=== PATIENT | female | born 1935 | race Caucasian/White ===

== ENCOUNTER 2017-12-10 12:11 | Observation (INO) | payer MEDICARE ==
--- NOTE | 2017-12-10 13:50 | ED ---
General Adult HPI - General Chief complaint: Recheck/Abnormal Lab/Rx Stated complaint: lt leg pain behind knee Time Seen by Provider: 12/10/17 13:36 Source: patient, family, RN notes reviewed Mode of arrival: wheelchair Limitations: physical limitation - History of Present Illness Initial comments: This 82-year-old female who states she had the onset 2 days ago of difficulty moving her left lower extremity for she tries to walk she also had some pain behind her left knee. She states she woke up this morning with the same difficulty in movement of her right lower extremity. She has a false though she almost fell denies any headache dizziness blurry vision palpitations or other symptoms at this time. She has no prior history of strokes. She does states she occasionally has pain going down her right buttock into her leg but is not experiencing this at this time. No other modifying factors no known neurological disorders. Patient does have a history of breast cancer with surgery this past July. - Related Data Home Medications Medication Instructions Recorded Confirmed Anastrozole [Arimidex] 1 mg PO DAILY 12/10/17 12/10/17 Atorvastatin Calcium [Lipitor] 20 mg PO DAILY 12/10/17 12/10/17 Lisinopril [Zestril] 10 mg PO DAILY 12/10/17 12/10/17 Omeprazole 20 mg PO DAILY PRN 12/10/17 12/10/17 Triamterene-Hctz 37.5-25Mg 1 tab PO MOWEFR 12/10/17 12/10/17 [Maxzide 37.5-25] Allergies Allergy/AdvReac Type Severity Reaction Status Date / Time No Known Allergies Allergy Verified 12/10/17 14:01 Review of Systems ROS Statement: Those systems with pertinent positive or pertinent negative responses have been documented in the HPI. ROS Other: All systems not noted in ROS Statement are negative. Past Medical History Past Medical History: GERD/Reflux, Hyperlipidemia, Hypertension Additional Past Medical History / Comment(s): breast ca History of Any Multi-Drug Resistant Organisms: None Reported Past Surgical History: Adenoidectomy, Cholecystectomy, Tonsillectomy Additional Past Surgical History / Comment(s): rt masectomy july 2017 Past Psychological History: No Psychological Hx Reported Smoking Status: Never smoker Past Alcohol Use History: None Reported Past Drug Use History: None Reported General Exam - General Exam Comments Initial Comments: This is a well-developed well-nourished awake alert oriented 3 female Limitations: physical limitation General appearance: alert, in no apparent distress Head exam: Present: atraumatic, normocephalic, normal inspection Eye exam: Present: normal appearance, PERRL, EOMI. Absent: scleral icterus, conjunctival injection, periorbital swelling ENT exam: Present: normal exam, mucous membranes moist Neck exam: Present: normal inspection. Absent: tenderness, meningismus, lymphadenopathy Respiratory exam: Present: normal lung sounds bilaterally. Absent: respiratory distress, wheezes, rales, rhonchi, stridor Cardiovascular Exam: Present: regular rate, normal rhythm, normal heart sounds. Absent: systolic murmur, diastolic murmur, rubs, gallop, clicks GI/Abdominal exam: Present: soft, normal bowel sounds. Absent: distended, tenderness, guarding, rebound, rigid Extremities exam: Present: normal inspection, tenderness (Mild posterior knee tenderness palpation no masses), normal capillary refill. Absent: full ROM, pedal edema, joint swelling, calf tenderness Back exam: Present: other (Mild evidence of kyphosis) Neurological exam: Present: alert, oriented X3, CN II-XII intact, motor sensory deficit (The patient had difficulty raising both lower extremities to gravity. Push pull the feet are equal bilaterally no sensory or vascular deficits.) Psychiatric exam: Present: normal affect, normal mood Skin exam: Present: warm, dry, intact, normal color. Absent: rash Course Vital Signs 12/10/17 12:58 Temperature 97.7 F Pulse Rate 56 L Respiratory 18 Rate Blood Pressure 134/67 O2 Sat by Pulse 99 Oximetry Medical Decision Making - Medical Decision Making The patient was able ambulate but with a lot of difficulty. She has trouble with her right leg starts moving it forward and controlling it. Patient will be admitted I discuss case with Dr. Perez - Lab Data Result diagrams: 12/10/17 14:38 12/10/17 14:38 Lab Results 12/10/17 12/10/17 12/10/17 Range/Units 14:38 14:38 14:38 WBC 7.8 (3.8-10.6) k/uL RBC 4.52 (3.80-5.40) m/uL Hgb 14.2 (11.4-16.0) gm/dL Hct 42.6 (34.0-46.0) % MCV 94.3 (80.0-100.0) fL MCH 31.4 (25.0-35.0) pg MCHC 33.3 (31.0-37.0) g/dL RDW 12.9 (11.5-15.5) % Plt Count 293 (150-450) k/uL Neutrophils % 68 % Lymphocytes % 23 % Monocytes % 6 % Eosinophils % 2 % Basophils % 0 % Neutrophils # 5.4 (1.3-7.7) k/uL Lymphocytes # 1.8 (1.0-4.8) k/uL Monocytes # 0.4 (0-1.0) k/uL Eosinophils # 0.2 (0-0.7) k/uL Basophils # 0.0 (0-0.2) k/uL Sodium 141 (137-145) mmol/L Potassium 3.8 (3.5-5.1) mmol/L Chloride 108 H (98-107) mmol/L Carbon Dioxide 26 (22-30) mmol/L Anion Gap 7 mmol/L BUN 21 H (7-17) mg/dL Creatinine 0.69 (0.52-1.04) mg/dL Est GFR (CKD-EPI)AfAm >90 (>60 ml/min/1.73 sqM) Est GFR (CKD-EPI)NonAf 81 (>60 ml/min/1.73 sqM) Glucose 86 (74-99) mg/dL Calcium 9.9 (8.4-10.2) mg/dL Magnesium 2.0 (1.6-2.3) mg/dL Total Bilirubin 0.6 (0.2-1.3) mg/dL AST 28 (14-36) U/L ALT 35 (9-52) U/L Alkaline Phosphatase 97 (38-126) U/L Total Creatine Kinase 52 (30-135) U/L CK-MB (CK-2) 1.1 (0.0-2.4) ng/mL CK-MB (CK-2) Rel Index 2.1 Total Protein 6.8 (6.3-8.2) g/dL Albumin 4.2 (3.5-5.0) g/dL TSH 2.550 (0.465-4.680) mIU/L Urine Color Urine Appearance (Clear) Urine pH (5.0-8.0) Ur Specific Abie (1.001-1.035) Urine Protein (Negative) Urine Glucose (UA) (Negative) Urine Ketones (Negative) Urine Blood (Negative) Urine Nitrite (Negative) Urine Bilirubin (Negative) Urine Urobilinogen (<2.0) mg/dL Ur Leukocyte Esterase (Negative) 12/10/17 Range/Units 17:05 WBC (3.8-10.6) k/uL RBC (3.80-5.40) m/uL Hgb (11.4-16.0) gm/dL Hct (34.0-46.0) % MCV (80.0-100.0) fL MCH (25.0-35.0) pg MCHC (31.0-37.0) g/dL RDW (11.5-15.5) % Plt Count (150-450) k/uL Neutrophils % % Lymphocytes % % Monocytes % % Eosinophils % % Basophils % % Neutrophils # (1.3-7.7) k/uL Lymphocytes # (1.0-4.8) k/uL Monocytes # (0-1.0) k/uL Eosinophils # (0-0.7) k/uL Basophils # (0-0.2) k/uL Sodium (137-145) mmol/L Potassium (3.5-5.1) mmol/L Chloride (98-107) mmol/L Carbon Dioxide (22-30) mmol/L Anion Gap mmol/L BUN (7-17) mg/dL Creatinine (0.52-1.04) mg/dL Est GFR (CKD-EPI)AfAm (>60 ml/min/1.73 sqM) Est GFR (CKD-EPI)NonAf (>60 ml/min/1.73 sqM) Glucose (74-99) mg/dL Calcium (8.4-10.2) mg/dL Magnesium (1.6-2.3) mg/dL Total Bilirubin (0.2-1.3) mg/dL AST (14-36) U/L ALT (9-52) U/L Alkaline Phosphatase (38-126) U/L Total Creatine Kinase (30-135) U/L CK-MB (CK-2) (0.0-2.4) ng/mL CK-MB (CK-2) Rel Index Total Protein (6.3-8.2) g/dL Albumin (3.5-5.0) g/dL TSH (0.465-4.680) mIU/L Urine Color Yellow Urine Appearance Clear (Clear) Urine pH 5.5 (5.0-8.0) Ur Specific Abie 1.024 (1.001-1.035) Urine Protein Trace H (Negative) Urine Glucose (UA) Negative (Negative) Urine Ketones 1+ H (Negative) Urine Blood Negative (Negative) Urine Nitrite Negative (Negative) Urine Bilirubin Negative (Negative) Urine Urobilinogen <2.0 (<2.0) mg/dL Ur Leukocyte Esterase Negative (Negative) - Radiology Data Radiology results: report reviewed (Did review the imaging and report no acute findings.), image reviewed Disposition Clinical Impression: Right leg weakness, Failure to thrive Disposition: ADMITTED IP TO THIS [facility] Condition: Stable Referrals: Nonstaff,Physician [Primary Care Provider] - 1-2 days
[2017-12-10 14:48] LABS: Basophils % (A) 0 %; Eosinophils # (A) 0.2 k/uL (0-0.7); Eosinophils % (A) 2 %; HCT 42.6 % (34.0-46.0); HGB 14.2 gm/dL (11.4-16.0); Lymphocytes # (A) 1.8 k/uL (1.0-4.8); Lymphocytes % (A) 23 %; MCH 31.4 pg (25.0-35.0); MCHC 33.3 g/dL (31.0-37.0); MCV 94.3 fL (80.0-100.0); Mean Platelet Volume 6.8; Monocytes # (A) 0.4 k/uL (0-1.0); Monocytes % (A) 6 %; Neutrophils # (A) 5.4 k/uL (1.3-7.7); Neutrophils % (A) 68 %; Platelet Count 293 k/uL (150-450); RBC 4.52 m/uL (3.80-5.40); RDW 12.9 % (11.5-15.5); WBC 7.8 k/uL (3.8-10.6)
[2017-12-10 14:55] LABS: ALT 35 U/L (9-52); AST 28 U/L (14-36); Albumin 4.2 g/dL (3.5-5.0); Alkaline Phosphatase 97 U/L (38-126); Anion Gap 7 mmol/L; Blood Urea Nitrogen 21 mg/dL (7-17); Calcium 9.9 mg/dL (8.4-10.2); Carbon Dioxide 26 mmol/L (22-30); Chloride 108 mmol/L (98-107); Glucose 86 mg/dL (74-99); Potassium 3.8 mmol/L (3.5-5.1); Sodium 141 mmol/L (137-145); Total Bilirubin 0.6 mg/dL (0.2-1.3); Total Protein 6.8 g/dL (6.3-8.2)
[2017-12-10 15:17] LABS: Creatine Kinase MB 1.1 ng/mL (0.0-2.4)
--- NOTE | 2017-12-10 15:43 | US ---
EXAMINATION TYPE: US venous doppler duplex LE LT DATE OF EXAM: 12/10/2017 3:23 PM COMPARISON: NONE CLINICAL HISTORY: Pain. SIDE PERFORMED: Left TECHNIQUE: The lower extremity deep venous system is examined utilizing real time linear array sonog odette with graded compression, doppler sonography and color-flow sonography. VESSELS IMAGED: External Iliac Vein (EIV) Common Femoral Vein Deep Femoral Vein Greater Saphenous Vein * Femoral Vein Popliteal Vein Small Saphenous Vein * Proximal Calf Veins (* superficial vessels) Left Leg: Negative for DVT Lee's cyst 5.5 x 1.8 x 3.9cm Patient had difficulty adducting leg. IMPRESSION: 1. Left lower extremity negative for deep venous thrombosis. 2. Popliteal cyst left popliteal fossa.
--- NOTE | 2017-12-10 16:00 | CT ---
EXAMINATION TYPE: CT brain wo con DATE OF EXAM: 12/10/2017 COMPARISON: None INDICATION: Leg weakness. DLP: 819.1 mGycm, Automated exposure control for dose reduction was used. CONTRAST: None CT of the brain is performed utilizing 3 mm thick sections through the posterior fossa and 3 mm thick sections through the remaining calvarium. Study is performed within 24 hours of arrival to the hosp [facility]. No abnormal hyperdensity is present to suggest an acute intracranial hemorrhage. No mass lesion is evident. No acute infarcts are evident. Mild periventricular white matter hypodensity is present, likely on th e basis of white matter ischemic changes. Ventricles and sulci are appropriate for the patient age. Paranasal sinuses and mastoid air cells within the [id number] are clear. IMPRESSIONS: 1. Mild chronic appearing white matter ischemic changes.
--- NOTE | 2017-12-10 16:20 | XR ---
EXAMINATION TYPE: XR chest 2V DATE OF EXAM: 12/10/2017 COMPARISON: None INDICATION: Cough right hip pain TECHNIQUE: Frontal and lateral views of the chest are obtained. FINDINGS: The heart size is normal. The pulmonary vasculature is normal. The lungs are clear. IMPRESSION: 1. No acute pulmonary process.
--- NOTE | 2017-12-10 16:20 | XR ---
EXAMINATION TYPE: XR lumbosacral spine min 4V DATE OF EXAM: 12/10/2017 COMPARISON: None HISTORY: Right hip pain left posterior leg pain TECHNIQUE: Five-view lumbar spine FINDINGS: There 5 lumbar-type vertebral bodies. The pedicles are intact. Scoliosis is present. Degene rative disc changes are present with loss of disc height. Spondylosis is present. IMPRESSION: 1. Advanced degenerative disc changes with loss of disc height, spondylosis, and scoliosis to the teressa mbar spine.
[2017-12-10 17:14] LABS: Appearance,Urine Clear (Clear); Bilirubin,Urine Negative (Negative); Blood,Urine Negative (Negative); Color,Urine Yellow; Glucose,Urine (UA) Negative (Negative); Ketones,Urine 1+ (Negative); Leukocyte Esterase,Urine Negative (Negative); Nitrite,Urine Negative (Negative); PH, Urine 5.5 (5.0-8.0); Protein,Urine Trace (Negative); Specific Gravity,Urine 1.024 (1.001-1.035); Urobilinogen,Urine <2.0 mg/dL (<2.0)
[2017-12-10] MEDS ORDERED: NALOXONE 0.4 MG/ML 1 ML VIAL IV PRN (17:31)
[2017-12-10] MEDS ORDERED: PANTOPRAZOLE 40 MG TABLET PO PRN (17:36)
[2017-12-10 20:13] VITALS: BMI 28.0
[2017-12-10] MEDS: TRIAMTERENE-HCTZ 37.5-25MG 1 EACH TAB PO SCH (20:15)
[2017-12-10] MEDS ORDERED: ACETAMINOPHEN TAB 500 MG TAB PO PRN (23:27)
[2017-12-10] MEDS ORDERED: ALPRAZolam 0.25 MG TAB PO PRN (23:27)
--- NOTE | 2017-12-11 07:57 | HP ---
HISTORY AND PHYSICAL DATE OF SERVICE: 12/10/2017 CHIEF COMPLAINTS: Right leg weakness. HISTORY OF PRESENT ILLNESS: This 82-year-old woman with a past medical history of multiple medical problems including GERD, hypertension, hypertension, breast cancer, being followed by a physician elsewhere, was complaining of right leg pain about the last 2 weeks. The patient also had some difficulty in left leg also. This morning the patient woke up and the patient had right leg difficulties, which is partially improving according to her and the patient came to [facility] and admitted for further evaluation and treatment. There is no history of fever, rigors. No headache, loss conscious, seizures. The patient had multiple evaluation including CT of the brain which showed mild chronic appearing ischemic changes and venous Doppler was negative for DVT and lumbar spine x-ray was done which showed advanced DJD. Neurology evaluation in progress. There is no history of fever, rigors. No headache, loss of consciousness, seizures. PAST MEDICAL HISTORY: History of GERD, hypertension, hyperlipidemia, history of breast cancer, adenoidectomy, cholecystectomy. MEDICATIONS: Prior to admission include home medications are: 1. Triamterene hydrochlorothiazide 37.8/25 mg p.o. Sunday, Sunday, Sunday. 2. Omeprazole 20 mg daily p.r.n. 3. Zestril 10 mg. 4. Lipitor 20 mg daily. 5. Arimidex 1 mg. ALLERGIES: None. FAMILY HISTORY: History of CVA, TIA in the family, angioplasty and stents. SOCIAL HISTORY: No history of smoking. No history of alcohol intake. REVIEW OF SYSTEMS: ENT: No diminished hearing or vision. CARDIOVASCULAR: No angina. RESPIRATORY: No cough or hemoptysis. GI: No nausea. : No dysuria. NERVOUS SYSTEM: As mentioned earlier. ALLERGY/IMMUNOLOGY: No history of asthma or hay fever. MUSCULOSKELETAL: As mentioned earlier. HEMATOLOGY: No history of anemia. ENDOCRINE: No history of diabetes or hypothyroid. CONSTITUTIONAL: As mentioned earlier. DERMATOLOGY: Negative. RHEUMATOLOGY: Negative. PSYCHIATRY: As mentioned earlier. PHYSICAL EXAMINATION: Alert and oriented x3. Pulse is 60, blood pressure 159/80, respiration 16, temperature 97.1, pulse ox 90% on room air. HEENT: Conjunctivae normal. Oral mucosa moist. NECK: No jugular venous distention. No carotid bruit. No lymph node enlargement. CARDIOVASCULAR: S1, S2. RESPIRATORY: Breath sounds diminished in the bases. No rhonchi. No crackles. ABDOMEN: Soft, nontender. No mass palpable. LEGS: Minimal weakness of the right leg present. No sensory abnormality. Otherwise the left leg appears to be normal. NERVOUS SYSTEM: Higher functions as mentioned. Moves all 4 limbs except the right limb as mentioned early. Otherwise no sensory abnormality. SKIN: No ulcer, rash, bleeding. LYMPHATIC No lymphadenopathy in the neck, axillae, groin. JOINTS: No active deforming arthropathy. LABS: CBC within normal limits. CMP within normal. UA noted. ASSESSMENT: 1. Weakness of the right leg possible acute transient ischemic attack or acute stroke. 2. Gastroesophageal reflux disease. 3. Hypertension. 4. Hyperlipidemia. 5. 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 6. History of breast cancer. 7. History of cholecystectomy. RECOMMENDATIONS AND DISCUSSION: This 82-year-old woman who presented with multiple complex medical issues, we will monitor the patient closely. Continue the current management and symptomatic treatment. Otherwise, neurology evaluation. Antiplatelet agents. I would also recommend Lipitor. Continue the home medications. Guarded prognosis because of multiple complex medical issues. Further recommendations to follow. I also recommend the patient follow up with primary physician closely. MMODL / IJN: [id number] /
[2017-12-11] MEDS: LISINOPRIL 10 MG TAB PO SCH (11:59)
[2017-12-11] MEDS: ASPIRIN 81 MG PO SCH (11:59)
[2017-12-11] MEDS: ATORVASTATIN 20 MG TAB PO SCH (11:59)
[2017-12-11] MEDS: HEPARIN SODIUM,PORCINE 5,000 UNIT/ML 1 ML VIAL SQ SCH ×2 (11:59→20:29)
[2017-12-11] MEDS: ANASTROZOLE 1 MG TAB PO SCH (12:00)
[2017-12-11] MEDS: SODIUM CHLORIDE 0.9% 1,000 ML IV SCH (12:00)
--- NOTE | 2017-12-11 16:11 | P.CNNES ---
History of Present Illness Consult date: 12/11/17 Requesting physician: Mendoza Barraza Reason for Consult: Right lower extremity weakness Chief complaint: Right lower extremity weakness History of Present Illness: Neurology is consult in an 82-year-old female with a past history of multiple medical comorbidities that include GERD, hypertension, breast cancer. Patient is complaining of right lower extremity weakness for approximately the last 14 days. Patient did have symptoms in the left leg also which have since resolved. Upon presentation at the ED, patient reported waking up having right leg difficulties which began improving according the patient. However patient still presented for symptoms. Patient described that she woke up with complete loss of strength in her right lower extremity on rising from bed and attempting to ambulate. For several days previous, patient did have intermittent type shooting pains from her low back into the right lower extremity. Patient does have a known history of right-sided sciatica. She also reports having a significant history of lumbar DDD of greater than 10 years. While at home, patient was unclear if the symptoms were more consistent with sciatica or possible stroke and came to the hospital. Currently, patient still reports some right lower extremity weakness and also reports low back pain on the right that radiates down the right lower extremity intermittently along the lateral border/pant stripe that stops just above the top of the foot with and without ambulation. X-ray performed on arrival to Hospital for the lumbar spine noted advanced degenerative disc changes with loss of disc height, spondylosis and scoliosis of the lumbar spine. Pedicles are intact. Degenerative changes are present. On contact, patient was alert and oriented 3, sitting at the bedside in no acute distress. Family was present in the room. Review of Systems Systems not noted in HPI or negative Past Medical History Past Medical History: GERD/Reflux, Hyperlipidemia, Hypertension Additional Past Medical History / Comment(s): breast ca in July 2017 History of Any Multi-Drug Resistant Organisms: None Reported Past Surgical History: Adenoidectomy, Cholecystectomy, Tonsillectomy Additional Past Surgical History / Comment(s): rt masectomy july 2017 Past Psychological History: No Psychological Hx Reported Smoking Status: Never smoker Past Alcohol Use History: None Reported Past Drug Use History: None Reported - Past Family History Mother Family Medical History: CVA/TIA Additional Family Medical History / Comment(s): angiodisplacia of intestine, englarged heart. Father Additional Family Medical History / Comment(s): bladder cancer with metastasis Medications and Allergies Home Medications Medication Instructions Recorded Confirmed Type Anastrozole [Arimidex] 1 mg PO DAILY 12/10/17 12/10/17 History Atorvastatin Calcium [Lipitor] 20 mg PO DAILY 12/10/17 12/10/17 History Lisinopril [Zestril] 10 mg PO DAILY 12/10/17 12/10/17 History Omeprazole 20 mg PO DAILY PRN 12/10/17 12/10/17 History Triamterene-Hctz 37.5-25Mg 1 tab PO MOWEFR 12/10/17 12/10/17 History [Maxzide 37.5-25] Allergies Allergy/AdvReac Type Severity Reaction Status Date / Time No Known Allergies Allergy Verified 12/10/17 14:01 Physical Examination - Vital Signs Vital Signs: Vital Signs Temp Pulse Pulse Resp BP BP Pulse Ox 12/11/17 08:00 98 F 59 L 16 119/57 94 L 12/11/17 04:00 56 L 18 113/55 98 12/11/17 00:00 47 L 16 110/53 96 12/10/17 20:00 60 12/10/17 19:48 97.1 F L 60 16 159/80 98 12/10/17 19:21 54 L 18 126/75 97 12/10/17 18:30 58 L 18 141/65 96 12/10/17 17:56 97.1 F L 70 16 159/80 98 12/10/17 17:30 52 L 18 133/60 98 Intake and Output 12/11/17 12/11/17 12/11/17 06:59 14:59 22:59 Intake Total 150 Output Total 560 Balance -410 Intake: Oral 150 Output: Urine 560 Other: # Voids 1 2 # Bowel Movements 1 Weight 56.9 kg Gen. appearance: Alert, in no apparent distress Head: Atraumatic normocephalic, normal inspection Eyes: Well appearance, PERRL, EOMI. absent: Scleral icterus, conjunctival injection, nystagmus, periorbital swelling. Ear nose and throat: Normal exam, mucous membranes moist Neck: Normal inspection. Absent tenderness, lymphadenopathy Respiratory: No increased work of breathing. Cardiovascular: Regular rate, normal rhythm, normal heart sounds. Absent systolic murmur, diastolic murmur, rubs, gallops, clicks GIabdominal: Normal bowel sounds, non distended, no tenderness, no guarding, no rebound, no rigidity. Extremities: All range of motion, normal capillary refill, no tenderness, pedal edema, joint swelling, calf tenderness Neurological: Alert and oriented 3, cranial nerves II through XII intact, right lower extremity unilateral lateralizing weakness 4-/5, left lower extremity 4+ out of 5, bilateral upper extremities 4+ out of 5, no seizure activity noted on physical exam, no pronator drift and no nystagmus. Musculoskeletal/spine: Positive dorsiflexion, negative plantar flexion, negative pain with extension below the knee, negative SI exam. Psychological: Mood and affect appropriate setting Results - Laboratory Findings CBC and BMP: 12/10/17 14:38 12/10/17 14:38 Abnormal Lab Findings: Abnormal Labs 12/10/17 12/10/17 14:38 17:05 Chloride 108 H BUN 21 H Urine Protein Trace H Urine Ketones 1+ H Assessment and Plan (1) TIA (transient ischemic attack) Narrative/Plan: Although the patient CT of the brain was negative for acute process, there are some components the patient's physical exam findings are suggestive for possible TIA/CVA. As a result, we will continue further neurological workup to rule out TIA/CVA at this time. Concerning symptoms include the right lower extremity weakness that is ongoing. Further diagnostic workup to include: MRI of the brain without contrastif patient's breast markers or MRI safe. Staff nurse advised records can be obtained from [facility]. EEG Carotid Doppler studyultrasound-guided Serum homocystine level Lipid panel Treatment: Continue Lipitor 20 mg daily at bedtime as ordered and implemented Continue 81 mg aspirin as implemented on arrival Continue neuro checks per order Further treatment recommendations once results of imaging and testing is received and reviewed Current Visit: Yes Status: Acute Code(s): G45.9 - TRANSIENT CEREBRAL ISCHEMIC ATTACK, UNSPECIFIED SNOMED Code(s): 417159468 (2) Right leg weakness Narrative/Plan: She does have physical exam findings consistent with both lumbar degenerative disc disease as well as possible TIA/CVA. Given the patient's x-ray findings which note lumbar DDD, further diagnostic workup is warranted to rule out concurrent lumbar etiology to account for patient's current symptoms and presentation. Diagnostic workup to include: MRI lumbar spine without contrastpatient has breast markers due to breast CA history. Verify MRI safe with [facility] Physical therapy consult recommended X-ray lumbar spine notes lumbar DDD, scoliosis, spondylosis Treatment: Further treatment options will be discussed once results of imaging is received and reviewed Current Visit: Yes Status: Acute Code(s): R29.898 - OTH SYMPTOMS AND SIGNS INVOLVING THE MUSCULOSKELETAL SYSTEM SNOMED Code(s): 090345636 (3) Lumbar degenerative disc disease Current Visit: Yes Status: Acute Code(s): M51.36 - OTHER INTERVERTEBRAL DISC DEGENERATION, LUMBAR REGION SNOMED Code(s): 83275390 (4) Scoliosis Narrative/Plan: As previously noted above. Current Visit: Yes Status: Acute Code(s): M41.9 - SCOLIOSIS, UNSPECIFIED SNOMED Code(s): 703026291 Plan: At this time, neurology continues to conduct further diagnostic workup as noted above. STATUS: Neurology will continue to follow and provide updates as needed or warranted. Feel free to contact our office with any questions. I discussed the patients history, physical exam, diagnostic testing, lab work and imaging with Dr Lara prior to implementing the plan above. He agrees with the plan as implemented prior to implementation.
--- NOTE | 2017-12-11 17:02 | PN ---
PROGRESS NOTE DATE OF SERVICE: 12/11/2017 This 82-year-old woman who was admitted with right leg weakness also had left- sided weakness. The patient is being closely monitored. Lumbar spine x-ray showed DJD. The patient also had markers in the breast area for breast cancer. Neurology is following the patient closely. Past medical history reviewed. REVIEW OF SYSTEMS: CARDIOVASCULAR SYSTEM: No angina, palpitations. RESPIRATORY SYSTEM: No cough, hemoptysis. GI: As mentioned earlier. : No dysuria or retention. NERVOUS SYSTEM: As mentioned earlier. CURRENT MEDICATIONS: Reviewed. They include: 1. Tylenol 500 mg q.6 p.r.n. 2. Xanax 0.25 t.i.d. 3. Arimidex 1 mg p.o. daily. 4. Aspirin 81 mg daily. 5. Lipitor 20 mg daily. 6. Heparin 5000 units subcutaneously b.i.d. 7. Zestril 10 mg daily. 8. Melatonin 3 mg at bedtime. 9. Narcan 0.2 mg b.i.d. 10.Protonix 40 mg daily. 11.Maxzide PHYSICAL EXAMINATION: Patient is alert, oriented x3. Pulse 59, blood pressure 119/56, respiration 16, temperature 98 degrees, pulse ox 94% on room air. HEENT: Conjunctivae normal. Oral mucosa moist. NECK: No jugular venous distention. No carotid bruit. No lymph node enlargement. CARDIOVASCULAR SYSTEM: S1, S2 muffled. RESPIRATORY SYSTEM: Breath sounds diminished at the bases. Scattered rhonchi and crackles. ABDOMEN: Soft, non-tender. No mass palpable. LEGS: No edema. No swelling. NERVOUS SYSTEM: Higher functions as mentioned earlier. Moves all 4 limbs. Mild weakness in the right leg, much improved at this time. Lab investigations are awaited at this time. Carotid Doppler and EEG and other evaluations are pending at this time. ASSESSMENT: 1. Weakness of the right leg, possible acute transient ischemic attack or acute stroke. 2. Gastroesophageal reflux disease. 3. Weakness of the left leg. 4. 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 5. Hypertension. 6. Hyperlipidemia. 7. History of breast cancer. 8. History of cholecystectomy. RECOMMENDATIONS AND DISCUSSION: In this 82-year-old woman who presented with multiple complex medical issues, we will monitor the patient closely, continue the current medications, continue with symptomatic treatment. Will continue with antiplatelet agents and Lipitor at this time. Continue to monitor. Continue PT/OT evaluation. Neuro checks. Full neurovascular evaluation. I had a detailed discussion with Neurology at this time. The weakness also could be due to a central lesion, most likely acute stroke, or also could be related to lumbar spinal disease as well. So we would recommend MRI of the lumbosacral spine area as well as MRI of the brain. Continue to monitor. The overall prognosis is guarded because of multiple complex medical issues. We will also complete the neurovascular workup. Also discussed with the family, who understands and agrees. Further recommendations to follow. MMODL / IJN: [id number] / NESHA
--- NOTE | 2017-12-11 18:26 | EEG ---
ELECTROENCEPHALOGRAM REPORT DATE OF SERVICE: 12/11/2017 REASON FOR TESTING: Possible stroke. DESCRIPTION OF THE PROCEDURE: This EEG was performed using a 21-channel digital electroencephalograph, following international 10-20 system. DESCRIPTION OF THE RECORDING: From the beginning of the tracing, and with the patient's eyes closed, the background rhythm was mostly consisting of 10 Hz alpha frequency in the posterior occipital leads. No obvious asymmetry is seen. Photic stimulation was performed with a good driving response seen. No pathological waves were elicited. Hyperventilation was not performed. The patient remains awake throughout the tracing. No epileptiform discharges were seen. Her EKG lead showed a regular rate and rhythm. INTERPRETATION: This awake EEG can be considered within normal limits. There was no asymmetry seen. No epileptiform discharges were noticed. The absence of epileptiform discharges does not rule out the diagnosis of epilepsy; therefore clinical correlation is recommended. HEATHER / NANCY: [id number] /
[2017-12-11] MEDS: MELATONIN 3 MG TABLET PO SCH (20:29)
--- NOTE | 2017-12-11 22:12 | US ---
EXAMINATION TYPE: US carotid duplex BILAT DATE OF EXAM: 12/11/2017 COMPARISON: NONE CLINICAL HISTORY: TIA/CVA. Difficulty walking EXAM MEASUREMENTS: RIGHT: Peak Systolic Velocity (PSV) cm/sec ----- Right CCA: 54.5 ----- Right ICA: 78.1 ----- Right ECA: 49.4 ICA/CCA ratio: 1.4 RIGHT: End Diastole cm/sec ----- Right CCA: 13.2 ----- Right ICA: 23.8 ----- Right ECA: 8.0 LEFT: Peak Systolic Velocity (PSV) cm/sec ----- Left CCA: 68.0 ----- Left ICA: 74.5 ----- Left ECA: 62.6 ICA/CCA ratio: 1.1 LEFT: End Diastole cm/sec ----- Left CCA: 14.1 ----- Left ICA: 22.5 ----- Left ECA: 5.1 VERTEBRALS (direction of flow): Right Vertebral: Antegrade Left Vertebral: Antegrade Rhythm: Normal Bilateral intimal thickening, minimal plaque bilateral bulb, no elevated velocities, no significant s tenosis. Grayscale, color Doppler, spectral Doppler imaging performed of the carotid arteries. Waveform analys is does not show significant stenosis of the proximal internal carotid arteries. IMPRESSION: No hemodynamic significant stenosis of the proximal internal carotid arteries bilaterall y by Doppler criteria, an indirect measurement of carotid stenosis
--- NOTE | 2017-12-11 22:24 | MR ---
MR brain and lumbar spine without contrast HISTORY: Cerebral vascular accident, radiculopathy Multiplanar multisequence imaging obtained through the brain and lumbar spine Correlation to CT brain 12/10/2017, lumbosacral spine 12/10/2017 FINDINGS: Brain MRI: There is cortical atrophy. No restricted diffusion. No hemorrhage or hydrocephalus. Corpus callosum, pituitary, cervical medullary junction, cerebellopontine angles are normal. Confluent and scattered periventricular and deep white matter hyperintensities are present on inversion recovery an d T2-weighted sequences. There are normal vascular flow voids. Orbits show symmetric appearance. Muco nii disease present in the left frontal sinus. IMPRESSION: Age-related atrophy and chronic small vessel ischemia Lumbar spine MRI: There is multilevel spondylosis. Loss of disc height and signal present at the inte rvertebral levels with associated vacuum phenomenon. Minimal anterolisthesis grade 1 L4-5, retrolisth esis grade 1 L5-S1, retrolisthesis grade 1 L3-4. Dextroscoliosis centered at the midthoracic spine. T he conus is at L1 shows an unremarkable appearance. Suspect artifact present seen on axial image 8 of the T1 data set showing hyperintensity within the central canal. L5-S1: There is a right posterior paracentral hard disc extension causing anterolateral mass effect o n the thecal sac, likely mass effect on the proximal S1 nerve root on the right greater than left. Ci rcumferential extension of endplate disc complex results in foraminal encroachment bilaterally. No si gnificant central stenosis. There is facet arthropathy L4-5: Facet arthropathy with hypertrophy ligamentum flavum associated with the listhesis and circumfe rential broad-based disc bulge results in a trefoil appearance of the thecal sac, moderate central ca nal stenosis, lateral extension of endplate disc complex results in foraminal encroachment greater on the right. L3-4: Facet arthropathy with hypertrophy of the ligamentum flavum encroaches on the lateral recesses. Circumferential extension endplate disc complex encroaches greater on the left neural foramen, there is anterior mass effect on the thecal sac, moderate central canal stenosis. L2-3: Facet arthropathy with hypertrophy ligamentum flavum causes posterior lateral mass effect on th e thecal sac, encroachment on the lateral recesses, lateral extension endplate disc complex associate d with scoliosis results in left-sided foraminal encroachment. L1-2: Broad-based posterior disc bulge is present, small central posterior disc herniation causes mil d anterior mass effect on the thecal sac. There is facet arthropathy causing encroachment on the late ral recesses. No significant central stenosis or foraminal encroachment. Probable parapelvic cysts associated with the left kidney. IMPRESSION: Degenerative disc disease, facet arthropathy, multilevel foraminal encroachment and spina l stenosis. Hard disc causing mass effect on the thecal sac at L5-S1, correlate for right S1 radiculo pollo. Additional findings above.
[2017-12-12 06:14] LABS: Basophils % (A) 1 %; Eosinophils # (A) 0.2 k/uL (0-0.7); Eosinophils % (A) 3 %; Lymphocytes # (A) 2.1 k/uL (1.0-4.8); Lymphocytes % (A) 35 %; MCH 31.1 pg (25.0-35.0); MCHC 32.6 g/dL (31.0-37.0); MCV 95.6 fL (80.0-100.0); Mean Platelet Volume 6.7; Monocytes # (A) 0.3 k/uL (0-1.0); Monocytes % (A) 6 %; Neutrophils # (A) 3.1 k/uL (1.3-7.7); Neutrophils % (A) 54 %; Platelet Count 262 k/uL (150-450); RBC 4.19 m/uL (3.80-5.40); RDW 12.9 % (11.5-15.5); WBC 5.9 k/uL (3.8-10.6)
[2017-12-12 06:43] LABS: Anion Gap 6 mmol/L; Blood Urea Nitrogen 25 mg/dL (7-17); Calcium 9.6 mg/dL (8.4-10.2); Carbon Dioxide 23 mmol/L (22-30); Chloride 110 mmol/L (98-107); Cholesterol 164 mg/dL (<200); Glucose 83 mg/dL (74-99); HDL Cholesterol 68 mg/dL (40-60); LDL Cholesterol,Calculated 80 mg/dL (0-99); Potassium 4.2 mmol/L (3.5-5.1); Sodium 139 mmol/L (137-145); Triglycerides 80 mg/dL (<150)
[2017-12-12] MEDS: SODIUM CHLORIDE 0.9% 1,000 ML IV SCH ×2 (07:42→19:42)
[2017-12-12] MEDS: ASPIRIN 81 MG PO SCH (07:43)
[2017-12-12] MEDS: ATORVASTATIN 20 MG TAB PO SCH (07:43)
[2017-12-12] MEDS: ANASTROZOLE 1 MG TAB PO SCH (07:43)
[2017-12-12] MEDS: HEPARIN SODIUM,PORCINE 5,000 UNIT/ML 1 ML VIAL SQ SCH ×2 (07:43→19:42)
[2017-12-12] MEDS: LISINOPRIL 10 MG TAB PO SCH (07:44)
--- NOTE | 2017-12-12 12:06 | ECHOF ---
Referral Reason:Stroke MEASUREMENTS -------- HEIGHT: 147.3 cm WEIGHT: 56.7 kg BP: RVIDd: 2.1 cm (< 3.3) IVSd: 1.0 cm (0.6 - 1.1) LVIDd: 3.7 cm (3.9 - 5.3) LVPWd: 1.1 cm (0.6 - 1.1) IVSs: 1.7 cm LVIDs: 1.5 cm LVPWs: 1.5 cm Ao Diam: 2.5 cm (2.0 - 3.7) AV Cusp: 1.8 cm (1.5 - 2.6) LA Diam: 3.4 cm (2.7 - 3.8) MV EXCURSION: 14.273 mm (> 18.000) MV EF SLOPE: 67 mm/s (70 - 150) EPSS: 0.5 cm MV E Jossue: 0.67 m/s MV DecT: 357 ms MV A Jossue: 0.86 m/s MV E/A Ratio: 0.78 AR PHT: 345 ms RAP: 5.00 mmHg RVSP: 24.13 mmHg FINDINGS -------- Sinus rhythm. This was a technically adequate study. The left ventricular size is normal. There is moderate concentric left ventricular hypertrophy. O verall left ventricular systolic function is normal with, an EF between 55 - 60 %. The right ventricle is normal in size and function. The left atrium is normal in size. The right atrial size is normal. Aortic valve is trileaflet and is mildly thickened. The mitral valve leaflets are mildly thickened. Moderate mitral regurgitation is present. Mild tricuspid regurgitation present. There is no evidence of pulmonary hypertension. The right v entricular systolic pressure, as measured by Doppler, is 24.13mmHg. The pulmonic valve was not well visualized. There is no pulmonic regurgitation present. The aortic root size is normal. Normal inferior vena cava with normal inspiratory collapse consistent with estimated right atrial pre ssure of 5 mmHg. There is no pericardial effusion. CONCLUSIONS -------- 1. Sinus rhythm. 2. This was a technically adequate study. 3. The left ventricular size is normal. 4. There is moderate concentric left ventricular hypertrophy. 5. Overall left ventricular systolic function is normal with, an EF between 55 - 60 %. 6. The left atrium is normal in size. 7. Aortic valve is trileaflet and is mildly thickened. 8. The mitral valve leaflets are mildly thickened. 9. Moderate mitral regurgitation is present. 10. Mild tricuspid regurgitation present. 11. There is no evidence of pulmonary hypertension. 12. The pulmonic valve was not well visualized. 13. There is no pulmonic regurgitation present. 14. The aortic root size is normal. 15. Normal inferior vena cava with normal inspiratory collapse consistent with estimated right atrial pressure of 5 mmHg. 16. There is no pericardial effusion. OPTOMETRIC AIDE: Noy Edge RDCS
--- NOTE | 2017-12-12 15:35 | P.CNOR ---
History of Present Illness - [facility] Consult date: 12/12/17 Consult reason: other (Right lower extremity weakness) History of present illness: Patient's very pleasant 82-year-old woman who was admitted to the hospital in regards to weakness at her right lower extremity. She says that the weakness started last Sunday when she is trying to take her dogs out and was able to stand up and walk around because she was unable to move her right leg appropriately. She denies any new pain. She denies any new trauma. She denies any facial changes or speech changes. She denies any weakness in her upper extremities. She denies any chest pain or shortness breath. She denies any trauma or new injury. She says when she tries to stand up she is unable to walk her right lower extremity. She does have history of back pain on and off. She also has some history of some radicular type symptoms at her right lower extremity in the past at her calf thigh and buttocks on the right. She denies any changes in her left leg. She hasn't changed her upper extremities. Review of Systems As stated per HPI. She has been worked up regards to possible stroke. She'll been worked up in regards to her lumbar spine. She's not having severe pain. She is not requiring any pain medications. Past Medical History Past Medical History: GERD/Reflux, Hyperlipidemia, Hypertension Additional Past Medical History / Comment(s): breast ca in July 2017 History of Any Multi-Drug Resistant Organisms: None Reported Past Surgical History: Adenoidectomy, Cholecystectomy, Tonsillectomy Additional Past Surgical History / Comment(s): rt masectomy july 2017 Past Psychological History: No Psychological Hx Reported Smoking Status: Never smoker Past Alcohol Use History: None Reported Past Drug Use History: None Reported - Past Family History Mother Family Medical History: CVA/TIA Additional Family Medical History / Comment(s): angiodisplacia of intestine, englarged heart. Father Additional Family Medical History / Comment(s): bladder cancer with metastasis Medications and Allergies Home Medications Medication Instructions Recorded Confirmed Type Anastrozole [Arimidex] 1 mg PO DAILY 12/10/17 12/10/17 History Atorvastatin Calcium [Lipitor] 20 mg PO DAILY 12/10/17 12/10/17 History Lisinopril [Zestril] 10 mg PO DAILY 12/10/17 12/10/17 History Omeprazole 20 mg PO DAILY PRN 12/10/17 12/10/17 History Triamterene-Hctz 37.5-25Mg 1 tab PO MOWEFR 12/10/17 12/10/17 History [Maxzide 37.5-25] Allergies Allergy/AdvReac Type Severity Reaction Status Date / Time No Known Allergies Allergy Verified 12/10/17 14:01 Physical Examination Osteopathic Statement: *. No significant issues noted on an osteopathic structural exam other than those noted in the History and Physical/Consult. - L Spine: dermatomal strength & reflexes bilateral Strength: hip flexion: 2/5 (At her low back she has a bit of increased hair description at the midline. There is no specific dimpling or patches. At her lower extremities she has able to lift her leg up off the bed and apparently bilateral lower extremity is. She is able to flex her knees and lift her knee up and flex her hip with 4+ out of 5 strength bilaterally. She has 5 out of 5 strength the dorsal to plantar flexion and EHL bilaterally. She is 5 out of 5 strength in knee extension. When she is in a standing position however her hip flexion is significantly weak. She is unable to lift her knee up off to flex her hip. She still has ability to stand on her toes and heels bilateral lower extremity is. She is able to flex her knee and actually her hamstrings. She is not actively activating her hip flexors in a standing position. She is not having any pain with palpation around her hip or leg. She is not having pain in her lower back. She denies any pain was constant sneezes.) Results - Labs Labs: Abnormal Lab Results - Last 24 Hours (Table) 12/12/17 12/12/17 Range/Units 05:23 05:23 Chloride 110 H (98-107) mmol/L BUN 25 H (7-17) mg/dL HDL Cholesterol 68 H (40-60) mg/dL Homocysteine 15.79 H (4.00-14.00) umol/L H & H 12/10/17 12/12/17 Range/Units 14:38 05:23 Hgb 14.2 13.0 (11.4-16.0) gm/dL Hct 42.6 40.0 (34.0-46.0) % Result Diagrams: 12/12/17 05:23 12/12/17 05:23 - Diagnostic results Lumbar MRI with/without contrast: report reviewed, image reviewed (At her lumbar spine she has a number significant changes with severe disc degeneration and degenerative scoliosis. She has degenerative disc disease at L3 4 L4 5 L5- S1. She spondylolisthesis. She spinal stenosis severely at L4 5 with disc herniation at L5-S1. 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 She is not having significant pain but has weakness with hip flexion when she is standing position. She feels her symptoms have improved somewhat and she is able to mobilize adequately with a walker. She is able to bear weight on her lower extremity without any pain or problems. She has been workup for possible stroke with neurology and she does not seem to be having an acute stroke at this point. She does have significant changes at her lumbar spine which could be a cause of her lower extremity symptoms, though she is not having significant pain. She does have severe stenosis with spondylolisthesis L4 5 and significant degeneration with disc herniation at L5-S1 and some stenosis L3 4. She could be a candidate for interventional pain management or even for surgical intervention on her lumbar spine if her symptoms were to persist or worsen. Currently she is comfortable with her mobility and getting around with a walker and feels and she feels it would be okay for her to be at home. I think it is okay for her to be discharged from an orthopedic stype spine standpoint close follow-up next 1-2 weeks for recheck evaluation in the office. She is also continuing her workup and follow up with neurology who is considering interventional pain management with her and I think that would be appropriate. I'll plan to see her back in approximately 1-2 weeks for recheck evaluation.
--- NOTE | 2017-12-12 16:30 | P.PN ---
Subjective Progress Note Date: 12/12/17 Principal diagnosis: right lower extremity weakness Neurology is following on an 82-year-old female for right lower extremity weakness. patient began having right lower extremity weakness approximately 14 days. As previously noted patient does have complex medical history including GERD, hypertension and breast cancer. Patient did have noted lumbar DDD with x- ray while inpatient. Patient was sent for MRI lumbar spine which noted multilevel spondylosis, lumbar DDD, possible nerve root contact the S1 nerve root right greater than left with bilateral foraminal encroachment. Patient's MRI of the brain was negative for acute process. Patient has no new or changed underlying neurological symptoms in the last 24 hours. Patient's lipid panel notes elevated HDL. Other laboratory blood work including serum homocystine level showed slight elevation of serum homocystine. Patient is currently on 81 mg aspirin. Orthopedics has been up to see the patient today on consult, see orthopedic recommendations. On contact, patient was alert and oriented 3, sitting at the bedside in no acute distress. Objective - Vital Signs Vital signs: Vital Signs Temp 98.1 F 12/12/17 07:52 Pulse 69 12/12/17 11:55 Resp 16 12/12/17 11:55 BP 134/63 12/12/17 11:55 Pulse Ox 97 12/12/17 11:55 Intake & Output 12/11/17 12/12/17 12/12/17 18:59 06:59 18:59 Intake Total 150 480 Output Total 1120 Balance -970 480 Weight 56.9 kg Intake: Oral 150 480 Output: Urine 1120 Other: # Voids 2 1 2 # Bowel Movements 1 - Exam General appearance: Alert & oriented x3, no apparent distress. Head: Atraumatic, normocephalic, normal inspection Eyes: Well appearance, PERRLA, EOMI. Absent scleral icterus, conjunctival injection, nystagmus, periorbital swelling. Ear, nose and throat: Normal exam, mucous membranes moist Neck: Normal inspection, absent tenderness, lymphadenopathy. Respiratory: No increased work of breathing Cardiovascular: Regular rate, rhythm GI/abdominal: No guarding Extremities: Full range of motion, normal capillary refill, no tenderness, pedal edema joint swelling, calf tenderness. mild to moderate right L5, mild positive dorsiflexion of foot. Neurological: cranial nerves II through XII intact no lateralizing weakness no seizure activity noted on physical exam no pronator drift and no nystagmus. Left lower extremity: 4+/5 Right lower extremity: 4-/5 Left upper extremity: 4/5 Right upper extremity:4/5 Sensation: Left lower extremity: normal Right lower extremity: normal Left upper extremity: normal Right upper extremity:normal Psychological: Mood and Affect appropriate for setting - Labs CBC & Chem 7: 12/12/17 05:23 12/12/17 05:23 Labs: Abnormal Lab Results - Last 24 Hours (Table) 12/12/17 12/12/17 Range/Units 05:23 05:23 Chloride 110 H (98-107) mmol/L BUN 25 H (7-17) mg/dL HDL Cholesterol 68 H (40-60) mg/dL Homocysteine 15.79 H (4.00-14.00) umol/L Assessment and Plan (1) TIA (transient ischemic attack) Narrative/Plan: At this time, it does NOT appear that the patient experienced a CVA MRI brain was negative for acute process Carotid Doppler study was unremarkable Serum homocystine level slightly elevated, prescribed Folbic 1200 mg qday Lipid panel noted elevated HDL, no medication change related to anti- hyperlipidemic's Treatment: Continue Lipitor 20 mg daily at bedtime as ordered and implemented for long- term risk reduction Continue 81 mg aspirin as implemented for long-term risk reduction Current Visit: Yes Status: Acute Code(s): G45.9 - TRANSIENT CEREBRAL ISCHEMIC ATTACK, UNSPECIFIED SNOMED Code(s): 956817997 (2) Right leg weakness Narrative/Plan: Diagnostic workup to include: MRI lumbar spine with noted changes as stated in HPI X-ray lumbar spine notes lumbar DDD, scoliosis, spondylosis Recommend: NCS/EMG bilateral lower extremity for any further underlying radiculopathy or neuropathy in the outpatient setting Treatment: Continue physical therapy for rehabilitative efforts. Current Visit: Yes Status: Acute Code(s): R29.898 - OTH SYMPTOMS AND SIGNS INVOLVING THE MUSCULOSKELETAL SYSTEM SNOMED Code(s): 931368017 (3) Lumbar degenerative disc disease Narrative/Plan: as stated in #2 above Current Visit: Yes Status: Acute Code(s): M51.36 - OTHER INTERVERTEBRAL DISC DEGENERATION, LUMBAR REGION SNOMED Code(s): 15339058 (4) Scoliosis Narrative/Plan: As previously noted above. Current Visit: Yes Status: Acute Code(s): M41.9 - SCOLIOSIS, UNSPECIFIED SNOMED Code(s): 081296039 Plan: At this time, neurology we will clear the patient for discharge from a neurological standpoint. Patient to follow-up in our office within 14 days I discussed the patients history, physical exam, diagnostic testing, lab work and imaging with Dr Lara prior to implementing the plan above. He agrees with the plan as implemented prior to implementation.
[2017-12-12] MEDS: TRIAMTERENE-HCTZ 37.5-25MG 1 EACH TAB PO SCH (17:06)
[2017-12-12] MEDS: MELATONIN 3 MG TABLET PO SCH (19:42)
[2017-12-13 04:32] VITALS: RESP 16; TEMP 98.2
[2017-12-13] MEDS: ASPIRIN 81 MG PO SCH (07:45)
[2017-12-13] MEDS: ANASTROZOLE 1 MG TAB PO SCH (07:45)
[2017-12-13] MEDS: ATORVASTATIN 20 MG TAB PO SCH (07:45)
[2017-12-13] MEDS: LISINOPRIL 10 MG TAB PO SCH (07:45)
[2017-12-13] MEDS: HEPARIN SODIUM,PORCINE 5,000 UNIT/ML 1 ML VIAL SQ SCH (07:45)
--- NOTE | 2017-12-13 11:37 | PN ---
PROGRESS NOTE DATE OF SERVICE: 12/12/2017 This 82-year-old woman who was admitted with bilateral leg weakness, evaluated for TIA versus lumbar spinal compression. No chest pain. No palpitations. No fever. PHYSICAL EXAMINATION: On exam, alert and oriented x3. Pulse 62, blood pressure 119/56, respirations 16, temperature 98.2, pulse ox 93% on room air. HEENT: Conjunctivae normal. NECK: No jugular venous distention. CARDIOVASCULAR: S1 and S2 muffled. RESPIRATORY: Breath sounds diminished at the bases. No rhonchi, no crackles. ABDOMEN: Soft. LEGS: Minimal weakness. NERVOUS SYSTEM: Noted. LABS: Homocysteine 15.79. ASSESSMENT: 1. Weakness of the right leg, possible acute transient ischemic attack or acute stroke. 2. Rule out lumbar spinal compression and degenerative joint disease. 3. Gastroesophageal reflux disease. 4. Weakness of the left leg. 5. Hypertension. 6. Hyperlipidemia. 7. History of breast cancer. 8. History of cholecystectomy. RECOMMENDATIONS AND DISCUSSION: Recommend to continue current medications, continue to monitor and symptomatic treatment. Otherwise at this time closely monitor closely follow with Orthopedic Surgery. Guarded prognosis. Further recommendations to follow. MMODL / IJN: [id number] /
[2017-12-13] MEDS ORDERED: CYANOCOBALAMIN-FA-PYRIDOXINE 1 EACH TAB PO SCH (12:00)
[2017-12-13 12:06] VITALS: BP 130/66; PULSE 57
--- NOTE | 2017-12-13 18:46 | DS ---
DISCHARGE SUMMARY FINAL DIAGNOSES: 1. Weakness of the right leg possible acute transient ischemic attack or acute stroke. 2. Possible lumbar spinal compression and degenerative joint disease. 3. Gastroesophageal reflux disease. 4. Weakness of the left leg history. 5. Hypertension. 6. Hyperlipidemia. 7. History of breast cancer. 8. History of cholecystectomy. DISCHARGE DISPOSITION: The patient will be discharged in stable condition with guarded prognosis. Total time 35 minutes. HISTORY OF PRESENT ILLNESS: This 82-year-old woman with a past medical history of multiple medical problems was admitted with weakness of the both legs, right more the left per history. Patient was evaluated for possible TIA, treated symptomatically. PT, OT evaluated. Neurology and Orthopedics saw the patient. MRI of the brain and back was also done. Patient improved significantly. Orthopedics evaluated with MRI and spinal stenosis suspected but however the orthopedics recommended outpatient followup. The prognosis is extremely guarded and the patient is able to walk at this time. The patient is discharged in a stable condition with guarded prognosis after clearance from Neurology and Orthopedic Surgery. On exam, vitals are stable. Cardiovascular: S1, S2. Abdomen: Soft. Nervous System: Mild diffuse weakness. DISCHARGE ADVICE: 1. Diet is cardiac. 2. Activity limited until followup. 3. Follow up with the patient's PCP in 2-3 days. 4. Follow up with neurologist as advised. 5. Follow up with orthopedic surgery as advised. MEDICATIONS: As follows: 1. Demadex 1 mg p.o. daily. 2. Lipitor 20 mg daily. 3. Zestril 10 mg b.i.d. 4. Omeprazole 20 mg daily. 5. Triamterene hydrochlorothiazide max 1 tablet Sunday, Sunday, Sunday. 6. Aspirin 81 mg daily. 7. Folbic 1 p.o. daily. Once again, the patient will be discharged in stable condition with guarded prognosis. MMODL / IJN: [id number] /
== END 2017-12-13 16:24 | disposition home or self-care (01) ==
LOC: EC 12:11 → INTOOBSV 17:31 → 6SEL 17:31
PROVIDERS: ADMIT Hospitalist; ATTEND Hospitalist
DX: R53.1 Weakness (principal); I10 Essential (primary) hypertension; K21.9 Gastro-esophageal reflux disease without esophagitis; E78.5 Hyperlipidemia, unspecified; M51.36 Other intervertebral disc degeneration, lumbar region; M47.817 Spondylosis without myelopathy or radiculopathy, lumbosacral region; M43.16 Spondylolisthesis, lumbar region; M54.31 Sciatica, right side; R29.898 Other symptoms and signs involving the musculoskeletal system; M71.22 Synovial cyst of popliteal space [Baker], left knee; M41.9 Scoliosis, unspecified; Z85.3 Personal history of malignant neoplasm of breast; Z79.811 Long term (current) use of aromatase inhibitors; Z79.899 Other long term (current) drug therapy; Z90.49 Acquired absence of other specified parts of digestive tract; Z90.11 Acquired absence of right breast and nipple; Z82.3 Family history of stroke; Z80.52 Family history of malignant neoplasm of bladder; Z82.49 Family history of ischemic heart disease and other diseases of the circulatory system; Z83.79 Family history of other diseases of the digestive system
CPT/HCPCS: 99285 ×2; 96372 ×2; 36415; 95819; 93306; 97116 ×2; 97162; 97166; 80061; 80053; 80048; 84443; 82550; 82553; 83735; 85025 ×2; 81003; 83090; 72110; 71046; 93971; 93880; 70450; 70551; 72148; G0378 ×4; J1644 ×2; S0170 ×3